=== PATIENT | female | born 2000 | race Caucasian/White ===

== ENCOUNTER 2018-04-09 18:49 | Emergency (ER) | payer SELFPAY ==
[2018-04-09] MEDS ORDERED: ONDANSETRON 4 MG TAB.RAPDIS PO ONE (20:01)
[2018-04-09] MEDS ORDERED: ACETAMINOPHEN 325 MG TABLET PO ONE (20:02)
--- NOTE | 2018-04-09 20:05 | ER Document Report ---
ED Medical Screen (RME) - General Chief Complaint: Flank Pain Stated Complaint: SIDE PAIN Time Seen by Provider: 04/09/18 19:58 Notes: RAPID MEDICAL EVALUATION DISCLOSURE I have seen this patient as part of a Rapid Medical Evaluation and, if ap plicable, placed any initially appropriate orders. The patient will be seen and fully evaluated, including a full history and physical exam, by a provider (in Main ED or Fast Track) when a room becomes available. 17-year-old female here with complaints of dysuria, right-sided back pain, nausea ongoing for the past 1-2 days. The back pain radiates around the flank and to the front. She has not had any hematuria frequency fevers chills vomiting diarrhea. She has not taken anything for the symptoms. She does have a strong family history of kidney stones. She has never had UTI or kidney infections. EXAM CTAB RRR No abdominal TTP, no peritoneal signs No CVA TTP TRAVEL OUTSIDE OF THE [place] IN LAST 30 DAYS: No - Related Data Allergies/Adverse Reactions: No Known Allergies Allergy (Unverified 04/09/18 18:56) Past Medical History Past Surgical History: Reports: Hx Orthopedic Surgery - bilateral knee/ligmament sx Physical Exam - Vital signs Vitals: Temp Pulse Resp BP Pulse Ox 98.6 F 84 14 135/86 H 99 04/09/18 19:02 04/09/18 19:02 04/09/18 19:02 04/09/18 19:02 04/09/18 19:02 Course - Vital Signs Vital signs: Temp Pulse Resp BP Pulse Ox 98.6 F 84 14 135/86 H 99 04/09/18 19:02 04/09/18 19:02 04/09/18 19:02 04/09/18 19:02 04/09/18 19:02
[2018-04-09 20:39] LABS: ABSOLUTE BASOPHILS # (AUTO) 0.1 10^3/uL (0.0-0.2); ABSOLUTE EOSINOPHILS # (AUTO) 0.3 10^3/uL (0.0-0.6); ABSOLUTE LYMPHOCYTES (AUTO) 2.4 10^3/uL (0.5-4.7); ABSOLUTE MONOCYTES (AUTO) 0.5 10^3/uL (0.1-1.4); ABSOLUTE NEUT (AUTO) 7.2 10^3/uL (1.7-8.2); BASOPHILS % (AUTO) 0.5 % (0-2); EOSINOPHILS % (AUTO) 2.5 % (0-6); HEMATOCRIT 42.7 % (36.0-47.0); HEMOGLOBIN 14.5 g/dL (12.0-15.5); LYMPHOCYTES % (AUTO) 22.9 % (13-45); MEAN CORPUSCULAR HEMOGLOBIN 30.3 pg (27.0-33.4); MEAN CORPUSCULAR VOLUME 89 fl (80-97); MONOCYTES % (AUTO) 4.9 % (3-13); PLATELET COUNT 351 10^3/uL (150-450); RED BLOOD COUNT 4.79 10^6/uL (3.72-5.28); RED CELL DISTRIBUTION WIDTH 13.2 % (11.5-14.0); SEGMENTED NEUTROPHILS % (AUTO) 69.2 % (42-78); TOTAL CELLS COUNTED % (AUTO) 100 %; WHITE BLOOD COUNT 10.4 10^3/uL (4.0-10.5)
[2018-04-09 20:46] LABS: APPEARANCE,URINE CLEAR; BILIRUBIN,URINE NEGATIVE (NEGATIVE); COLOR,URINE STRAW; GLUCOSE, URINE NEGATIVE (NEGATIVE); KETONES,URINE NEGATIVE (NEGATIVE); LEUKOCYTE ESTERASE,URINE NEGATIVE (NEGATIVE); NITRITE,URINE NEGATIVE (NEGATIVE); PROTEIN,URINE NEGATIVE (NEGATIVE); URINE SPECIFIC GRAVITY 1.006; UROBILINOGEN,URINE NEGATIVE mg/dL (<2.0)
[2018-04-09 20:54] LABS: ALANINE AMINOTRANSFERASE < 6 U/L (5-35); ALBUMIN 4.7 g/dL (3.7-5.6); ALKALINE PHOSPHATASE 77 U/L (50-135); ANION GAP 9 (5-19); ASPARTATE AMINO TRANSFERASE 14 U/L (5-30); BILIRUBIN,DIRECT 0.2 mg/dL (0.0-0.4); BILIRUBIN,TOTAL 0.2 mg/dL (0.2-1.3); BLOOD UREA NITROGEN 7 mg/dL (7-20); CALCIUM 9.7 mg/dL (8.4-10.2); CARBON DIOXIDE 26 mmol/L (22-30); CHLORIDE 106 mmol/L (98-107); GLUCOSE 90 mg/dL (75-110); LIPASE 69.8 U/L (23-300); POTASSIUM 3.9 mmol/L (3.6-5.0); SODIUM 141.1 mmol/L (137-145); TOTAL PROTEIN 7.6 g/dL (6.3-8.2)
--- NOTE | 2018-04-09 22:06 | RADIOLOGY REPORT (SQ) ---
EXAM DESCRIPTION: CT ABDOMEN WITHOUT IV CONTRAST COMPLETED DATE/TME: 04/09/2018 20:01 CLINICAL HISTORY: 17 years, Female, R low back pain rad to front COMPARISON: None. TECHNIQUE: 364 Images stored on PACS. All CT scanners at this facility use dose modulation, iterative reconstruction, and/or weight based dosing when appropriate to reduce radiation dose to as low as reasonably achievable (ALARA). [facility]: Dose Right [facility]: CareDose [facility]: Dose Right [facility]: Teradose 4D [facility]: [employer] LIMITATIONS: None. FINDINGS: Limited evaluation of the lung bases is unremarkable. Osseous structures are grossly intact. The visualized liver, spleen, adrenal glands, pancreas, kidneys are unremarkable. Negative for urinary tract calculus or hydronephrosis. The gallbladder is contracted. No gross evidence for bowel obstruction. Abundant stool in the colon. Normal appendix. Urinary bladder not distended, limiting its evaluation. No free air or free fluid. IMPRESSION: Negative for urinary tract calculus or hydronephrosis. Abundant stool in the colon. TECHNICAL DOCUMENTATION: Quality ID # 436: Final reports with documentation of one or more dose reduction techniques (e.g., Automated exposure control, adjustment of the mA and/or kV according to patient size, use of iterative reconstruction technique) copyright 2010 [employer]- All Rights Reserved
[2018-04-09] MEDS ORDERED: KETOROLAC TROMETHAMINE INJ/PF 30 MG/1 ML SDV IV ONE (22:41)
--- NOTE | 2018-04-09 22:43 | ER Document Report ---
ED GI/ - General Chief Complaint: Flank Pain Stated Complaint: SIDE PAIN Time Seen by Provider: 04/09/18 19:58 Notes: Patient is a 17-year-old female that comes to the emergency department for chief complaint of right lower abdominal/pelvic pain with radiation around to the right lower back. Symptoms started yesterday, are intermittent, she reports intermittent nausea. She denies vomiting. She denies fever or chills. She denies vaginal bleeding or discharge. She states she is sexually active but she has never had sexual intercourse without protection. She denies any daily medications or medical history other than orthopedic surgery. Family history of both kidney stones and ovarian cysts. TRAVEL OUTSIDE OF THE [place] IN LAST 30 DAYS: No - Related Data Allergies/Adverse Reactions: No Known Allergies Allergy (Unverified 04/09/18 18:56) Past Medical History - General Information source: Patient, Parent - Social History Smoking Status: Current Every Day Smoker Chew tobacco use (# tins/day): No Frequency of alcohol use: None Drug Abuse: None Lives with: Family Family History: Reviewed & Not Pertinent Patient has suicidal ideation: No Patient has homicidal ideation: No - Medical History Medical History: Negative Renal/ Medical History: Denies: Hx Peritoneal Dialysis Past Surgical History: Reports: Hx Orthopedic Surgery - bilateral knee/ligmament sx - Immunizations Immunizations up to date: Yes Hx Diphtheria, Pertussis, Tetanus Vaccination: Yes Review of Systems - Review of Systems Constitutional: No symptoms reported EENT: No symptoms reported Cardiovascular: No symptoms reported Respiratory: No symptoms reported Gastrointestinal: See HPI Genitourinary: See HPI Female Genitourinary: See HPI Musculoskeletal: No symptoms reported Skin: No symptoms reported Hematologic/Lymphatic: No symptoms reported Neurological/Psychological: No symptoms reported Physical Exam - Vital signs Vitals: Temp Pulse Resp BP Pulse Ox 98.6 F 84 14 135/86 H 99 04/09/18 19:02 04/09/18 19:02 04/09/18 19:02 04/09/18 19:02 04/09/18 19:02 - Notes Notes: GENERAL: Alert, interacts well. No acute distress. HEAD: Normocephalic, atraumatic. EYES: Pupils equal, round, and reactive to light. Extraocular movements intact. ENT: Oral mucosa moist, tongue midline. Oropharynx unremarkable. Airway patent. Nares patent, no nasal septal hematoma, TM's intact. NECK: Full range of motion. Supple. Trachea midline. LUNGS: Clear to auscultation bilaterally, no wheezes, rales, or rhonchi. No resp iratory distress. HEART: Regular rate and rhythm. No murmur ABDOMEN: Tender very specifically in the right pelvic area. Nontender benign abdomen otherwise. Slightly decreased bowel sounds throughout. GENITOURINARY: Deferred EXTREMITIES: Moves all 4 extremities spontaneously. No edema, normal radial and dorsalis pedis pulses bilaterally. No cyanosis. BACK: no cervical, thoracic, lumbar midline tenderness. No saddle anesthesia, normal distal neurovascular exam. NEUROLOGICAL: Alert and oriented x3. Normal speech. [cranial nerves II through XII grossly intact]. PSYCH: Normal affect, normal mood. SKIN: Warm, dry, normal turgor. No rashes or lesions noted. Course - Re-evaluation Re-evalutation: Patient alert, well-appearing, smiling, talkative. She has a soft nontender abdomen except for the right pelvic area. Suggestive of ovarian cyst with radiation to the lower back. No CVA tenderness. No vomiting. No fever. Unre markable vital signs. CBC, chemistry, urinalysis unremarkable. CT was performed in triage, this shows constipation but no acute findings otherwise. Because of patient's point tenderness over the pelvis I recommend a pelvic examination and ultrasound, pelvic exam was declined but ultrasound was agreed upon. Ultrasound showing right-sided ovarian cyst without evidence of torsion or concerning acute abnormality. Remaining evaluation is unremarkable. I discussed this with patient in detail, discussed with mom. Patient will be placed on medication for pain as needed (ketorolac), stool softener, discussed follow-up and return precautions. They state understanding and agreement. - Vital Signs Vital signs: Temp Pulse Resp BP Pulse Ox 98.2 F 71 14 126/66 H 99 04/10/18 00:25 04/10/18 00:25 04/09/18 19:02 04/10/18 00:25 04/10/18 00:25 - Laboratory Result Diagrams: 04/09/18 20:25 04/09/18 20:25 Discharge - Discharge Clinical Impression: Flank pain, Lower abdominal pain Condition: Stable Disposition: HOME, SELF-CARE Additional Instructions: Your workup shows an ovarian cyst on the right side. This is most likely the cause of your pain. This should resolve with time. I recommend routine [facility] follow-up for additional evaluation especially if symptoms continue. Workup also shows a lot of stool in the colon. Take stool softener as prescribed for the next several days, afterwards stop this stool softener and increase fiber an d hydration. Follow-up with primary care. Return if you worsen including severe pain, vomiting, fever, or any other concerning or worsening symptoms. Prescriptions: Ketorolac Tromethamine [Toradol 10 mg Tablet] 10 mg PO Q8HP PRN #24 tablet PRN Reason: Docusate Sodium [Colace 100 mg Capsule] 100 mg PO ASDIR PRN #30 capsule PRN Reason: Forms: Return to Work
--- NOTE | 2018-04-09 23:44 | RADIOLOGY REPORT (SQ) ---
EXAM DESCRIPTION: US PELVIS COMPLETED DATE/TME: 04/09/2018 22:41 CLINICAL HISTORY: 17 years, Female, right pelvic pain, nausea COMPARISON: None. TECHNIQUE: Transverse and longitudinal transabdominal sonographic images of the pelvis. Per history the patient refused transvaginal imaging. LIMITATIONS: None. FINDINGS: The uterus measures 7.3 x 5.5 x 3.5 cm. Endometrium measures 7 mm in thickness. The myometrium is homogenous. The left ovary is not well seen likely due to its position in the pelvis and overlying bowel gas. The right ovary measures 3.6 x 3.1 x 3.0 cm. Doppler and spectral analysis with color-flow shows arterial and venous flow to the right ovary. No solid adnexal mass. 3.0 x 2.9 x 2.3 cm right ovarian cyst, likely a dominant follicle. No free fluid IMPRESSION: Nonvisualization of the left ovary likely due to its position in the pelvis and overlying bowel gas. Probable dominant follicle of the right ovary. Remainder unremarkable copyright 2010 [employer]- All Rights Reserved
[2018-04-10 00:27] VITALS: BP 126/66
== END 2018-04-10 00:47 | disposition home or self-care (01) ==
LOC: ER 18:49
DX: R10.30 Lower abdominal pain, unspecified (principal); R11.0 Nausea; F17.200 Nicotine dependence, unspecified, uncomplicated
CPT/HCPCS: 99284; 96374; 36415; 87086; 83690; 85025; 81025; 80053; 81001; 76856; 93976; 76380; S0119; J1885

== ENCOUNTER 2019-01-27 13:16 | Emergency (ER) | payer MEDICAID ==
[2019-01-27 13:27] VITALS: BP 131/68
--- NOTE | 2019-01-27 13:37 | ER Document Report ---
ED Medical Screen (RME) - General Chief Complaint: Shoulder Pain Stated Complaint: CHEST PAIN Time Seen by Provider: 01/27/19 13:31 Mode of Arrival: Ambulatory Information source: Patient, Parent Notes: Patient presents complaining of shoulder pain and chest pressure for the past 4 days. Patient reports feeling anxious as well. Patient had a cough for the past week. Patient denies any injury. Patient does have a history of anxiety and is currently on medications. Patient denies any suicidal homicidal ideation. I have greeted and performed a rapid initial assessment of this patient. A comprehensive ED assessment and evaluation of the patient, analysis of test results and completion of the medical decision making process will be conducted by additional ED providers. TRAVEL OUTSIDE OF THE [place] IN LAST 30 DAYS: No - Related Data Allergies/Adverse Reactions: No Known Allergies Allergy (Verified 01/27/19 13:32) Past Medical History Renal/ Medical History: Denies: Hx Peritoneal Dialysis Past Surgical History: Reports: Hx Orthopedic Surgery - bilateral knee/ligmament sx - Immunizations Immunizations up to date: Yes Hx Diphtheria, Pertussis, Tetanus Vaccination: Yes Physical Exam - Vital signs Vitals: Temp Pulse Resp BP Pulse Ox 97.9 F 97 16 131/68 H 100 01/27/19 13:20 01/27/19 13:20 01/27/19 13:20 01/27/19 13:20 01/27/19 13:20 - General General appearance: Alert, Anxious Notes: Patient fidgeting in triage, patient unable to give history without assistance per mother due to anxiety about speaking. Breath sounds clear bilaterally. Course - Vital Signs Vital signs: Temp Pulse Resp BP Pulse Ox 97.9 F 97 16 131/68 H 100 01/27/19 13:20 01/27/19 13:20 01/27/19 13:20 01/27/19 13:20 01/27/19 13:20
--- NOTE | 2019-01-27 13:53 | RADIOLOGY REPORT (SQ) ---
EXAM DESCRIPTION: CHEST 2 VIEWS COMPLETED DATE/TIME: 01/27/2019 1:44 pm REASON FOR STUDY: cp COMPARISON: None. EXAM PARAMETERS: NUMBER OF VIEWS: two views TECHNIQUE: Digital Frontal and Lateral radiographic views of the chest acquired. RADIATION DOSE: NA LIMITATIONS: none FINDINGS: LUNGS AND PLEURA: No opacities, masses or pneumothorax. No pleural effusion. MEDIASTINUM AND HILAR STRUCTURES: No masses or contour abnormalities. HEART AND VASCULAR STRUCTURES: Heart normal size. No evidence for failure. BONES: No acute findings. HARDWARE: None in the chest. OTHER: No other significant finding. IMPRESSION: NO ACUTE RADIOGRAPHIC FINDING IN THE CHEST. TECHNICAL DOCUMENTATION: JOB ID: [id number] [employer] [facility]- All Rights Reserved Reading location - IP/workstation name: [email or web address]
--- NOTE | 2019-01-27 14:42 | EKG REPORT ---
SEVERITY:- NORMAL ECG - SINUS RHYTHM : Confirmed by: Genet Sutherland MD 27-Jan-2019 14:41:17
--- NOTE | 2019-01-27 14:52 | ER Document Report ---
ED General - General Chief Complaint: Chest Pain Stated Complaint: CHEST PAIN Time Seen by Provider: 01/27/19 13:31 Primary Care Provider: HECTOR OVERTON PA-C [Primary Care Provider] - Follow up as needed Mode of Arrival: Ambulatory TRAVEL OUTSIDE OF THE [place] IN LAST 30 DAYS: No - HPI Notes: Patient is a 18-year-old female who presents emergency department for evaluation of chest pain, shoulder pain, neck pain, jaw pain. It has been ongoing for the last 4 days. She has a history of anxiety. She describes as a tight and tense feeling. It is constant, seems to be worse when she lays down to go to sleep. She denies any associated visual changes. No nausea or vomiting. No shortness of breath, diaphoresis, near syncope. She is currently being treated by her primary care provider for anxiety. She is awaiting referral onto therapy. - Related Data Allergies/Adverse Reactions: No Known Allergies Allergy (Verified 01/27/19 13:32) Home Medications: Zoloft, Klonopin Past Medical History - General Information source: Patient, Parent - Social History Smoking Status: Current Every Day Smoker Family History: Reviewed & Not Pertinent Patient has suicidal ideation: No Patient has homicidal ideation: No Renal/ Medical History: Denies: Hx Peritoneal Dialysis Psychiatric Medical History: Reports: Hx Anxiety Past Surgical History: Reports: Hx Orthopedic Surgery - bilateral knee/ligmament sx - Immunizations Immunizations up to date: Yes Hx Diphtheria, Pertussis, Tetanus Vaccination: Yes Review of Systems - Review of Systems Constitutional: No symptoms reported EENT: No symptoms reported Cardiovascular: See HPI Respiratory: No symptoms reported Gastrointestinal: No symptoms reported Genitourinary: No symptoms reported Musculoskeletal: See HPI Skin: No symptoms reported Neurological/Psychological: No symptoms reported Physical Exam - Vital signs Vitals: Temp Pulse Resp BP Pulse Ox 97.9 F 97 16 131/68 H 100 01/27/19 13:20 01/27/19 13:20 01/27/19 13:20 01/27/19 13:20 01/27/19 13:20 - Notes Notes: Vital signs reviewed, please refer to chart. Head is normocephalic, atraumatic. Pupils equal round, reactive to light. Heart is regular rate and rhythm. Lungs are clear to auscultation bilaterally. Chest wall is tender to palpation. Abdomen is soft, nontender, normoactive bowel sounds throughout. Extremities without cyanosis, clubbing. Posterior calves are nontender. Peripheral pulses are equal. Skin is warm and dry. Patient is awake, alert, neurological exam is nonfocal. Muscular skeletal exam reveals significant tension bilateral masseters, and of the cervical spine, bilateral trapezius, and tracking into the anterior chest wall. Course - Re-evaluation Re-evalutation: 01/27/19 14:53 Patient presents emergency department for evaluation. She had chest x-ray and EKG performed. On physical exam her findings are most consistent with muscle tension, likely contributed to by her anxiety. Her chest x-ray and EKG were unremarkable. We will send the patient home with anti-inflammatories and muscle relaxers. Both her and her mother warned about drowsiness associated with the Flexeril. She voiced understanding to this. She is encouraged to follow-up closely with primary care, continue to seek out treatment for her anxiety. She is to return to the ED with worsening or new concerning symptoms of any sort. - Vital Signs Vital signs: Temp Pulse Resp BP Pulse Ox 97.9 F 97 16 131/68 H 100 01/27/19 13:20 01/27/19 13:20 01/27/19 13:20 01/27/19 13:20 01/27/19 13:20 - Diagnostic Test Radiology reviewed: Image reviewed, Reports reviewed Radiology results interpreted by me: 01/27/19 14:54 Chest X-Ray 01/27/19 13:35 IMPRESSION: NO ACUTE RADIOGRAPHIC FINDING IN THE CHEST. - EKG Interpretation by Me Additional EKG results interpreted by me: 01/27/19 14:54 Sinus mechanism with a rate of 83 bpm. Normal axis and intervals, no acute ST changes concerning for ischemia or infarction Discharge - Discharge Clinical Impression: Chest wall pain, Jaw pain Shoulder pain Qualifiers: Chronicity: acute Laterality: bilateral Qualified Code(s): M25.511 - Pain in right shoulder; M25.512 - Pain in left shoulder Condition: Stable Disposition: HOME, SELF-CARE Instructions: Chest Wall Pain ([facility]), Anxiety ([facility]), Tension Headache ([facility]) Additional Instructions: Take medications as prescribed, preferably with food. Please watch for drowsiness with the Flexeril. Follow-up with your primary care provider next week, continue to seek out therapy/psychiatry. Return to the emergency department with worsening or new concerning symptoms of any sort. Referrals: HECTOR OVERTON PA-C [Primary Care Provider] - Follow up as needed
== END 2019-01-27 15:10 | disposition home or self-care (01) ==
LOC: ER 13:16
DX: R07.89 Other chest pain (principal); R68.84 Jaw pain; M25.511 Pain in right shoulder; M25.512 Pain in left shoulder; F17.200 Nicotine dependence, unspecified, uncomplicated
CPT/HCPCS: 71046; 93005; 93010; 99285

== ENCOUNTER 2019-02-10 14:18 | Observation (INO) | payer MEDICAID ==
[2019-02-10] MEDS ORDERED: NORMAL SALINE 1000 ML 1,000 ML IV ONE ×2 (14:34→19:18)
--- NOTE | 2019-02-10 14:35 | ER Document Report ---
ED Medical Screen (RME) - General Chief Complaint: Lower Abdominal Pain Stated Complaint: ABDOMINAL PAIN Time Seen by Provider: 02/10/19 14:33 Primary Care Provider: HECTOR OVERTON PA-C [Primary Care Provider] - Follow up as needed Mode of Arrival: Ambulatory Information source: Patient Notes: Patient presents complaining of right lower quadrant pain that started yes terday. Patient denies any nausea or vomiting but does report diarrhea. No urinary symptoms. Patient is presently on her menstrual cycle. I have greeted and performed a rapid initial assessment of this patient. A comprehensive ED assessment and evaluation of the patient, analysis of test results and completion of the medical decision making process will be conducted by additional ED providers. TRAVEL OUTSIDE OF THE [place] IN LAST 30 DAYS: No - Related Data Allergies/Adverse Reactions: No Known Allergies Allergy (Verified 01/27/19 13:32) Past Medical History Renal/ Medical History: Denies: Hx Peritoneal Dialysis Psychiatric Medical History: Reports: Hx Anxiety Past Surgical History: Reports: Hx Orthopedic Surgery - bilateral knee/ligmament sx - Immunizations Immunizations up to date: Yes Hx Diphtheria, Pertussis, Tetanus Vaccination: Yes Physical Exam - Vital signs Vitals: Temp Pulse Resp BP Pulse Ox 97.5 F 106 H 14 137/74 H 99 02/10/19 14:22 02/10/19 14:22 02/10/19 14:22 02/10/19 14:22 02/10/19 14:22 - General General appearance: Appears well, Alert Notes: Right lower pelvic tenderness Course - Vital Signs Vital signs: Temp Pulse Resp BP Pulse Ox 97.5 F 106 H 14 137/74 H 99 02/10/19 14:22 02/10/19 14:22 02/10/19 14:22 02/10/19 14:22 02/10/19 14:22 Doctor's Discharge - Discharge Referrals: HECTOR OVERTON PA-C [Primary Care Provider] - Follow up as needed
--- NOTE | 2019-02-10 15:42 | RADIOLOGY REPORT (SQ) ---
EXAM DESCRIPTION: U/S NON OB PEL W/DOPPLER COMPLETED DATE/TIME: 02/10/2019 3:27 pm REASON FOR STUDY: RLQ pain COMPARISON: None. TECHNIQUE: Dynamic and static grayscale images acquired of the pelvis via transabdominal approach an d recorded on PACS. Additional selected color Doppler and spectral images recorded. LIMITATIONS: None. FINDINGS: UTERUS: Contour normal. No mass. ENDOMETRIAL STRIPE: No focal or generalized thickening. No masses. CERVIX: No nabothian cysts. RIGHT OVARY AND DOPPLER: Normal size. No worrisome masses. Normal arterial vascular flow without evid ence for torsion. Fluid around the right ovary. LEFT OVARY AND DOPPLER: Normal size. No worrisome masses. Normal arterial vascular flow without evide nce for torsion. FREE FLUID: Along the right ovary OTHER: No other significant finding. MEASUREMENTS: UTERUS: 7.2 cm ENDOMETRIAL STRIPE: 13.9 mm RIGHT OVARY: 4 cm LEFT OVARY: 3.3 cm IMPRESSION: Small amount of fluid around the right ovary. Otherwise normal. TECHNICAL DOCUMENTATION: JOB ID: [id number]- All Rights Reserved Rev-08/18 Reading location - IP/workstation name: [email or web address]
[2019-02-10 15:56] LABS: APPEARANCE,URINE CLEAR; BILIRUBIN,URINE NEGATIVE (NEGATIVE); COLOR,URINE STRAW; GLUCOSE, URINE NEGATIVE (NEGATIVE); KETONES,URINE NEGATIVE (NEGATIVE); PROTEIN,URINE NEGATIVE (NEGATIVE); URINE SPECIFIC GRAVITY 1.003; UROBILINOGEN,URINE NEGATIVE mg/dL (<2.0)
[2019-02-10 16:59] LABS: ABSOLUTE EOSINOPHILS # (AUTO) 0.1 10^3/uL (0.0-0.6); ABSOLUTE LYMPHOCYTES (AUTO) 1.4 10^3/uL (0.5-4.7); ABSOLUTE MONOCYTES (AUTO) 0.5 10^3/uL (0.1-1.4); BASOPHILS % (AUTO) 0.2 % (0-2); EOSINOPHILS % (AUTO) 0.7 % (0-6); HEMATOCRIT 43.2 % (36.0-47.0); HEMOGLOBIN 14.7 g/dL (12.0-15.5); MEAN CORPUSCULAR HEMOGLOBIN 30.8 pg (27.0-33.4); MEAN CORPUSCULAR VOLUME 91 fl (80-97); MONOCYTES % (AUTO) 4.3 % (3-13); PLATELET COUNT 318 10^3/uL (150-450); RED BLOOD COUNT 4.77 10^6/uL (3.72-5.28); RED CELL DISTRIBUTION WIDTH 12.4 % (11.5-14.0); SEGMENTED NEUTROPHILS % (AUTO) 81.8 % (42-78); TOTAL CELLS COUNTED % (AUTO) 100 %
[2019-02-10 17:16] LABS: ANION GAP 13 (5-19); BLOOD UREA NITROGEN 9 mg/dL (7-20); CALCIUM 9.8 mg/dL (8.4-10.2); CARBON DIOXIDE 25 mmol/L (22-30); CHLORIDE 104 mmol/L (98-107); GLUCOSE 88 mg/dL (75-110); POTASSIUM 4.4 mmol/L (3.6-5.0)
[2019-02-10 18:30] LABS: CHLAM PCR NOT DETECTED (NOT DETECT)
[2019-02-10] MEDS ORDERED: CLINDAMYCIN 600 MG/D5W RTU 600 MG/50 ML RTUPB IV ONE (19:17)
[2019-02-10] MEDS ORDERED: CEFTRIAXONE 1 GM/D5W RTU 1 GM/50 ML RTUPB IV ONE (19:17)
--- NOTE | 2019-02-10 19:18 | ER Document Report ---
ED GI/ - General Chief Complaint: Abdominal Pain Stated Complaint: ABDOMINAL PAIN Time Seen by Provider: 02/10/19 14:33 Primary Care Provider: HECTOR OVERTON PA-C [Primary Care Provider] - Follow up as needed Mode of Arrival: Ambulatory Information source: Patient Notes: Patient is an otherwise healthy 18-year-old female presenting to the emergency department with chief complaint of right lower quadrant abdominal pain that began yesterday. Patient denies any nausea, vomiting, diarrhea. Reports she thinks she had a fever earlier but she did not take her temperature. She does report that she is currently on her period. She does report history of ovarian cysts. TRAVEL OUTSIDE OF THE [place] IN LAST 30 DAYS: No - Related Data Allergies/Adverse Reactions: No Known Allergies Allergy (Verified 02/10/19 14:35) Home Medications: Zoloft, Clonazepam Past Medical History - General Information source: Patient - Social History Smoking Status: Current Every Day Smoker Chew tobacco use (# tins/day): No Frequency of alcohol use: None Drug Abuse: None Family History: Reviewed & Not Pertinent Patient has suicidal ideation: No Patient has homicidal ideation: No Renal/ Medical History: Reports: Hx Ovarian Cysts. Denies: Hx Peritoneal Dialysis Psychiatric Medical History: Reports: Hx Anxiety Past Surgical History: Reports: Hx Orthopedic Surgery - bilateral knee/ligmament sx - Immunizations Immunizations up to date: Yes Hx Diphtheria, Pertussis, Tetanus Vaccination: Yes Review of Systems - Review of Systems Constitutional: No symptoms reported EENT: No symptoms reported Cardiovascular: No symptoms reported Respiratory: No symptoms reported Gastrointestinal: Abdominal pain Genitourinary: No symptoms reported Female Genitourinary: No symptoms reported Musculoskeletal: No symptoms reported Skin: No symptoms reported Hematologic/Lymphatic: No symptoms reported Neurological/Psychological: No symptoms reported Physical Exam - Vital signs Vitals: Temp Pulse Resp BP Pulse Ox 97.5 F 106 H 14 137/74 H 99 02/10/19 14:22 02/10/19 14:22 02/10/19 14:22 02/10/19 14:22 02/10/19 14:22 - Notes Notes: PHYSICAL EXAMINATION: GENERAL: Well-appearing, well-nourished and in no acute distress. HEAD: Atraumatic, normocephalic. EYES: Pupils equal round and reactive to light, extraocular movements intact, conjunctiva are normal. ENT: Nares patent, oropharynx clear without exudates. Moist mucous membranes. NECK: Normal range of motion, supple without lymphadenopathy LUNGS: Breath sounds clear to auscultation bilaterally and equal. No wheezes rales or rhonchi. HEART: Regular rate and rhythm without murmurs ABDOMEN: Soft, nondistended abdomen. Mild tenderness to the right lower quadrant. No guarding, no rebound. No masses appreciated. Female : No CVA tenderness. Musculoskeletal: Normal range of motion, no pitting or edema. No cyanosis. NEUROLOGICAL: Cranial nerves grossly intact. Normal speech, normal gait. Normal sensory, motor exams PSYCH: Normal mood, normal affect. SKIN: Warm, Dry, normal turgor, no rashes or lesions noted. Course - Re-evaluation Re-evalutation: Laboratory 02/10/19 02/10/19 02/10/19 15:30 16:30 16:32 WBC 11.0 H RBC 4.77 Hgb 14.7 Hct 43.2 MCV 91 MCH 30.8 MCHC 34.0 RDW 12.4 Plt Count 318 Lymph % (Auto) 13.0 [place] % (Auto) 4.3 Eos % (Auto) 0.7 Baso % (Auto) 0.2 Absolute Neuts (auto) 9.0 H Absolute Lymphs (auto) 1.4 Absolute Monos (auto) 0.5 Absolute Eos (auto) 0.1 Absolute Basos (auto) 0.0 Seg Neutrophils % 81.8 H Sodium Potassium Chloride Carbon Dioxide Anion Gap BUN Creatinine Est GFR ( Amer) Est GFR (MDRD) Non-Af Glucose Calcium Serum HCG, Qual Urine Color STRAW Urine Appearance CLEAR Urine pH 7.0 Ur Specific [place] 1.003 Urine Protein NEGATIVE Urine Glucose (UA) NEGATIVE Urine Ketones NEGATIVE Urine Blood LARGE H Urine Nitrite (Reflex) NEGATIVE Urine Bilirubin NEGATIVE Urine Urobilinogen NEGATIVE Leukocyte Esterase Rfl NEGATIVE Urine RBC (Auto) 35 Urine Bacteria (Auto) TRACE Urine WBC (Reflex) 1 Squamous Epi Cells Auto 1 Urine Mucus (Auto) RARE Urine Ascorbic Acid NEGATIVE Chlamydia DNA (PCR) NOT DETECTED N.gonorrhoeae DNA (PCR) NOT DETECTED 02/10/19 02/10/19 16:32 16:32 WBC RBC Hgb Hct MCV MCH MCHC RDW Plt Count Lymph % (Auto) [place] % (Auto) Eos % (Auto) Baso % (Auto) Absolute Neuts (auto) Absolute Lymphs (auto) Absolute Monos (auto) Absolute Eos (auto) Absolute Basos (auto) Seg Neutrophils % Sodium 141.7 Potassium 4.4 Chloride 104 Carbon Dioxide 25 Anion Gap 13 BUN 9 Creatinine 0.53 Est GFR ( Amer) > 60 Est GFR (MDRD) Non-Af > 60 Glucose 88 Calcium 9.8 Serum HCG, Qual NEGATIVE Urine Color Urine Appearance Urine pH Ur Specific [place] Urine Protein Urine Glucose (UA) Urine Ketones Urine Blood Urine Nitrite (Reflex) Urine Bilirubin Urine Urobilinogen Leukocyte Esterase Rfl Urine RBC (Auto) Urine Bacteria (Auto) Urine WBC (Reflex) Squamous Epi Cells Auto Urine Mucus (Auto) Urine Ascorbic Acid Chlamydia DNA (PCR) N.gonorrhoeae DNA (PCR) Pelvis Ultrasound 02/10/19 14:33 IMPRESSION: Small amount of fluid around the right ovary. Otherwise normal. Abdomen/Pelvis CT 02/10/19 18:13 IMPRESSION: Findings consistent with acute appendicitis. Moderate amount of free fluid within the cul de sac and posterior to the ovaries ,prominent on the right. Called and consulted Dr. Medrano, general surgeon regarding acute dependence findings on CT. He will come and evaluate the patient. Patient advised again of n.p.o. status. - Vital Signs Vital signs: Temp Pulse Resp BP Pulse Ox 97.5 F 106 H 14 137/74 H 99 02/10/19 14:22 02/10/19 14:22 02/10/19 14:22 02/10/19 14:22 02/10/19 14:22 - Laboratory Result Diagrams: 02/10/19 16:32 02/10/19 16:32 Laboratory results interpreted by me: 02/10/19 02/10/19 15:30 16:32 WBC 11.0 H Absolute Neuts (auto) 9.0 H Seg Neutrophils % 81.8 H Urine Blood LARGE H Discharge - Discharge Clinical Impression: Acute appendicitis Qualifiers: Acute appendicitis type: unspecified acute appendicitis type Qualified Code(s): K35.80 - Unspecified acute appendicitis Condition: Stable Disposition: ADMITTED INPATIENT Admitting Provider: Surgicalist Ramiro Medrano Unit Admitted: Surgical Floor Referrals: HECTOR OVERTON PA-C [Primary Care Provider] - Follow up as needed
--- NOTE | 2019-02-10 19:29 | RADIOLOGY REPORT (SQ) ---
EXAM DESCRIPTION: CT ABD/PELVIS WITH IV ONLY COMPLETED DATE/TIME: 02/10/2019 6:53 pm REASON FOR STUDY: RLQ pain COMPARISON: None. TECHNIQUE: CT scan of the abdomen and pelvis performed using helical scanning technique with dynamic intravenous contrast injection. No oral contrast. Images reviewed with lung, soft tissue, and bone windows. Reconstructed coronal and sagittal MPR images reviewed. Delayed images for evaluation of the urinary system also acquired. All images stored on PACS. All CT scanners at this facility use dose modulation, iterative reconstruction, and/or weight based d osing when appropriate to reduce radiation dose to as low as reasonably achievable (ALARA). [facility]: Dose Right [facility]: CareDose [facility]: Dose Right [facility]: Teradose 4D [facility]: TRIA Beauty CONTRAST TYPE AND DOSE: contrast/concentration: Isovue 350.00 mg/ml; Total Contrast Delivered: 72.0 ml; Total Saline Delivered: 66.0 ml RENAL FUNCTION: Not available. RADIATION DOSE: CT Rad equipment meets quality standard of care and radiation dose reduction techniq ues were employed. CTDIvol: 5.1 - 6.2 mGy. DLP: 592 mGy-cm.. LIMITATIONS: None. FINDINGS: LOWER CHEST: No abnormality. LIVER: No abnormality. SPLEEN: No abnormality. PANCREAS: No abnormality. GALLBLADDER: No abnormality. ADRENAL GLANDS: No abnormality. RIGHT KIDNEY AND URETER: No abnormality. LEFT KIDNEY AND URETER: No abnormality. AORTA AND VESSELS: No aneurysm. No dissection. Renal arteries, SMA, celiac without stenosis. RETROPERITONEUM: No retroperitoneal adenopathy, hemorrhage or masses. BOWEL AND PERITONEAL CAVITY: There is a patulous distal ileum at the ileal cecal region which could r epresent a localized ileus secondary to the adjacent acute appendicitis. APPENDIX: There is evidence of a thick-walled distended appendix containing fluid with very appendice al inflammation. The appendix measures a cm in diameter. The findings are compatible with acute meera endicitis. Minimal periappendiceal inflammation noted (image number 23/[id number] series 601 coronal sca ns PELVIS: Moderate amount of free fluid in cul de sac and adjacent to posterior ovaries greatest on th e right. URINARY BLADDER: No abnormality. UTERUS: No abnormality. ADNEXAL REGIONS: No abnormalit y. ABDOMINAL WALL: No masses. No hernias. BONES: No abnormality. IMPRESSION: Findings consistent with acute appendicitis. Moderate amount of free fluid within the c ul de sac and posterior to the ovaries ,prominent on the right. COMMENT: The report was called to the patient's healthcare provider Liana Ross. TECHNICAL DOCUMENTATION: JOB ID: [id number] SC-69 Quality ID # [id number]: Final reports with documentation of one or more dose reduction techniques (e.g., Au tomated exposure control, adjustment of the mA and/or kV according to patient size, use of iterative reconstruction technique) 2010 [employer]- All Rights Reserved Reading location - IP/workstation name: [email or web address]
--- NOTE | 2019-02-10 19:55 | PDOC H&P ---
History of Present Illness Admission Date/PCP: HECTOR OVERTON PA-C Patient complains of: Abdominal pain right lower quadrant History of Present Illness: ANNY FRAGA is a 18 year old female healthy, with a history of right lower quadrant pain for the past 12 hours of intense nausea. A CT scan of the abdomen pelvis was done revealing an acute appendicitis with a small amount of fluid in the pelvis. No evidence of perforation. Past Surgical History Past Surgical History: Reports: Orthopedic Surgery - bilateral knee/ligmament sx Social History Smoking Status: Current Every Day Smoker Electronic Cigarette use?: No Family History Family History: Reviewed & Not Pertinent Parental Family History Reviewed: No Children Family History Reviewed: No Sibling(s) Family History Reviewed.: No Medication/Allergy Home Medications: Docusate Sodium [Colace 100 mg Capsule] 100 mg PO ASDIR PRN #30 capsule 04/10/18 Ketorolac Tromethamine [Toradol 10 mg Tablet] 10 mg PO Q8HP PRN #24 tablet 04/10/18 Cyclobenzaprine HCl [Flexeril 10 mg Tablet] 10 mg PO TIDP PRN #15 tab 01/27/19 Naproxen [Naprosyn] 500 mg PO BID #20 tablet 01/27/19 Allergies/Adverse Reactions: No Known Allergies Allergy (Verified 02/10/19 14:35) Physical Exam Vital Signs: Temp Pulse Resp BP Pulse Ox 97.5 F 106 H 14 137/74 H 99 02/10/19 14:22 02/10/19 14:22 02/10/19 14:22 02/10/19 14:22 02/10/19 14:22 Intake & Output 02/09/19 02/10/19 02/11/19 06:59 06:59 06:59 Intake Total 1000 Balance 1000 Weight 63.4 kg General appearance: PRESENT: no acute distress Head exam: PRESENT: atraumatic Eye exam: PRESENT: EOMI Mouth exam: PRESENT: neck supple Neck exam: PRESENT: full ROM Respiratory exam: PRESENT: chest wall tenderness Cardiovascular exam: PRESENT: RRR GI/Abdominal exam: PRESENT: soft, tenderness - Lower quadrant with grimacing Rectal exam: PRESENT: deferred Extremities exam: PRESENT: full ROM Musculoskeletal exam: PRESENT: full ROM Neurological exam: PRESENT: oriented to person Psychiatric exam: PRESENT: appropriate affect Skin exam: PRESENT: warm Results Laboratory Results: 02/10/19 16:32 11/10/19 16:32 02/10/19 02/10/19 02/10/19 15:30 16:32 16:32 WBC 11.0 H RBC 4.77 Hgb 14.7 Hct 43.2 MCV 91 MCH 30.8 MCHC 34.0 RDW 12.4 Plt Count 318 Seg Neutrophils % 81.8 H Sodium 141.7 Potassium 4.4 Chloride 104 Carbon Dioxide 25 Anion Gap 13 BUN 9 Creatinine 0.53 Est GFR ( Amer) > 60 Glucose 88 Calcium 9.8 Serum HCG, Qual Urine Color STRAW Urine Appearance CLEAR Urine pH 7.0 Ur Specific [place] 1.003 Urine Protein NEGATIVE Urine Glucose (UA) NEGATIVE Urine Ketones NEGATIVE Urine Blood LARGE H Urine RBC (Auto) 35 02/10/19 16:32 WBC RBC Hgb Hct MCV MCH MCHC RDW Plt Count Seg Neutrophils % Sodium Potassium Chloride Carbon Dioxide Anion Gap BUN Creatinine Est GFR ( Amer) Glucose Calcium Serum HCG, Qual NEGATIVE Urine Color Urine Appearance Urine pH Ur Specific [place] Urine Protein Urine Glucose (UA) Urine Ketones Urine Blood Urine RBC (Auto) Impressions: Pelvis Ultrasound 02/10/19 14:33 IMPRESSION: Small amount of fluid around the right ovary. Otherwise normal. Abdomen/Pelvis CT 02/10/19 18:13 IMPRESSION: Findings consistent with acute appendicitis. Moderate amount of free fluid within the cul de sac and posterior to the ovaries ,prominent on the right. Assessment & Plan - Diagnosis (1) Acute appendicitis Qualifiers: Acute appendicitis type: unspecified acute appendicitis type Qualified Code(s): K35.80 - Unspecified acute appendicitis - Plan Summary Plan Summary: Assessment: Right upper quadrant pain CT scan abdomen pelvis positive for acute appendicitis, without perforation, present small amount of fluid in the right pelvis Slight leukocytosis 11,000 History of depression Plan: Laparoscopic appendectomy possible open tonight Procedure, risks benefits complications, explained to the patient, her questions answered, she decided to proceed Patient to be admitted following surgery
[2019-02-10] MEDS ORDERED: MORPHINE SULFATE 10 MG/ML INJ IV ONE (20:34)
[2019-02-11] MEDS ORDERED: ONDANSETRON HCL INJ/PF 4 MG/2 ML SDV IV PRN ×2 (00:20→01:48)
[2019-02-11] MEDS ORDERED: MORPHINE SULFATE 10 MG/ML INJ IV PRN ×2 (00:21→01:48)
[2019-02-11] MEDS ORDERED: DEXTROSE 50%-WATER 25 GM/50 ML DISP.SYRIN IV PRN ×2 (01:48)
[2019-02-11] MEDS ORDERED: DEXTROSE 40% GEL 15 GM TUBE PO PRN ×2 (01:48)
[2019-02-11] MEDS ORDERED: GLUCAGON,HUMAN RECOMB 1 MG INJ SUBCUT PRN (01:48)
[2019-02-11] MEDS: ACETAMINOPHEN 1,000 MG/100 ML RTUPB IV SCH ×4 (02:56→20:18)
[2019-02-11] MEDS: CLINDAMYCIN 600 MG/D5W RTU 600 MG/50 ML RTUPB IV SCH ×3 (06:21→21:38)
[2019-02-11] MEDS: NORMAL SALINE 1000 ML 1,000 ML IV PRN ×2 (07:45→13:07)
[2019-02-11] MEDS ORDERED: KETOROLAC TROMETHAMINE 60 MG/2 ML SDV ONE (10:00)
[2019-02-11] MEDS ORDERED: GLYCOPYRROLATE 1 MG/5 ML VIAL ONE (10:00)
[2019-02-11] MEDS ORDERED: METOCLOPRAMIDE HCL INJ/PF 10 MG/2 ML SDV ONE (10:00)
[2019-02-11] MEDS ORDERED: NEOSTIGMINE METHYLSULFATE 10 MG/10 ML VIAL ONE (10:00)
[2019-02-11] MEDS ORDERED: LIDOCAINE 2% INJ-PF (20 MG/ML) 2 ML AMPUL ONE (10:00)
[2019-02-11] MEDS ORDERED: DEXAMETHASONE SOD PHOSPHATE INJ 4 MG/1 ML VIAL ONE (10:00)
[2019-02-11] MEDS ORDERED: SUCCINYLCHOLINE CHLORIDE INJ 200 MG/10 ML VIAL ONE (10:00)
[2019-02-11] MEDS ORDERED: ONDANSETRON HCL INJ/PF 4 MG/2 ML SDV ONE (10:00)
[2019-02-11] MEDS ORDERED: ROCURONIUM BROMIDE INJ 50 MG/5 ML VIAL IV ONE (10:00)
[2019-02-11] MEDS: FAMOTIDINE INJ/PF 20 MG/2 ML SDV IV SCH ×2 (10:13→22:29)
[2019-02-11] MEDS ORDERED: BUPIVACAINE HCL 0.5 % INJ/PF 30 ML SDV ONE (10:18)
[2019-02-11] MEDS ORDERED: FENTANYL CITRATE INJ/PF 100 MCG/2 ML AMPUL ONE (10:24)
[2019-02-11] MEDS ORDERED: MIDAZOLAM 2 MG/2 ML INJ ONE (10:24)
[2019-02-11] MEDS ORDERED: PROPOFOL INJ 200 MG/20 ML VIAL IV ONE (10:25)
[2019-02-11] MEDS ORDERED: BUPIVACAINE HCL 0.5 % INJ/PF 30 ML SDV INJ ONE (10:59)
[2019-02-11] MEDS ORDERED: FENTANYL CITRATE INJ/PF 100 MCG/2 ML AMPUL IV PRN ×3 (11:11)
[2019-02-11] MEDS ORDERED: DIPHENHYDRAMINE HCL 50 MG/ML VIAL IV PRN (11:11)
[2019-02-11] MEDS ORDERED: PROMETHAZINE HCL INJ 25 MG/1 ML VIAL IV PRN ×2 (11:11)
[2019-02-11] MEDS ORDERED: MEPERIDINE HCL/PF INJ 25 MG/1 ML DISP.SYRIN IV PRN (11:11)
[2019-02-11] MEDS ORDERED: HYDROMORPHONE HCL INJ/PF 2 MG/ML AMPULE IV PRN (11:12)
[2019-02-11] MEDS ORDERED: KETOROLAC TROMETHAMINE INJ/PF 30 MG/1 ML SDV IV SCH (12:00)
--- NOTE | 2019-02-11 12:02 | Operative Report ---
Operative Report DATE OF SURGERY: 02/11/19 PREOPERATIVE DIAGNOSIS: Acute appendicitis POSTOPERATIVE DIAGNOSIS: Same, nonperforated OPERATION: Laparoscopic appendectomy SURGEON: BRAYDEN HDZ ANESTHESIA: Local - 20 mL half percent Marcaine TISSUE REMOVED OR ALTERED: Appendix COMPLICATIONS: None ESTIMATED BLOOD LOSS: Strength 5 mL's INTRAOPERATIVE FINDINGS: Acutely inflamed appendix without evidence of perforation, minimal amount of fluid in the pelvis PROCEDURE: The procedure was done in the operating room. The patient was placed in a supine position, general anesthesia induced by endotracheal intubation, the abdomen was prepped and draped in usual fashion. An incision was made just above the umbilicus with a #15 blade, the skin was tented with towel clips and a 5 mm port with Optiview adapter and scope were inserted through the abdominal wall into the peritoneal cavity. After they CO2 pneumoperitoneum was obtained, under direct visualization a 5 mm report was inserted in the right lateral quadrant of the abdomen following skin incision. The scope was removed from the umbilical port and inserted into the right side port. The 5 mm umbilical port was removed and replaced with a 12 mm port, while the 5 mm port was inserted in left lower quadrant of the abdomen following skin incision. The patient was placed in steep Trendelenburg position with the right side elevated. The appendix was then identified by tracing the anterior tenia of the cecum, the appendix was then found, elevated, and stretched. The mesentery of the appendix was divided with the LigaSure. The appendix was found to be [non-perforated]. The appendix was stapled at the base with an Endo EDWARD stapler, extracted from the peritoneal cavity with an Endobag through the umbilical port. The pneumoperitoneum was then re-established, the stapled line was examined and found to be intact. The umbilical fascial defect was closed with a [id number]-[id number] 0 Vicryl suture, placed with a fascia closure device under direct visualization and left untied. All instruments were removed, the pneumoperitoneum was released, and all ports were removed. The umbilical fascial defect was closed with the previously placed [id number] 0 Vicryl suture, all skin incisions were closed with a 4-0 PDS running subcuticular suture, and covered with Dermabond. The patient tolerated the procedure well, was extubated, and transferred to the recovery room in satisfactory conditions.
[2019-02-11] MEDS ORDERED: HYDROMORPHONE HCL INJ/PF 2 MG/ML AMPULE ONE (12:03)
[2019-02-11] MEDS: MAG HYDROX/AL HYDROX/SIMETH SUSP 30 ML UDCUP PO PRN ×2 (13:50→21:38)
[2019-02-11] MEDS: KETOROLAC TROMETHAMINE INJ/PF 30 MG/1 ML SDV IV PRN (16:04)
[2019-02-11] MEDS ORDERED: CEFTRIAXONE 1 GM/D5W RTU 1 GM/50 ML RTUPB IV SCH (18:00)
[2019-02-11 20:38] LABS: APPEARANCE,URINE SLIGHTLY-CLOUDY; BILIRUBIN,URINE NEGATIVE (NEGATIVE); COLOR,URINE YELLOW; GLUCOSE, URINE NEGATIVE (NEGATIVE); KETONES,URINE 20 mg/dL (NEGATIVE); LEUKOCYTE ESTERASE,URINE NEGATIVE (NEGATIVE); NITRITE,URINE NEGATIVE (NEGATIVE); PROTEIN,URINE NEGATIVE (NEGATIVE); URINE SPECIFIC GRAVITY 1.006; UROBILINOGEN,URINE NEGATIVE mg/dL (<2.0)
[2019-02-11] MEDS ORDERED: DIPHENHYDRAMINE HCL 50 MG/ML VIAL IV ONE (22:44)
[2019-02-11] MEDS ORDERED: CYCLOBENZAPRINE HCL 10 MG TABLET PO PRN (22:45)
[2019-02-11] MEDS ORDERED: MORPHINE SULFATE 10 MG/ML INJ IV ONE (23:00)
[2019-02-12] MEDS: ACETAMINOPHEN 1,000 MG/100 ML RTUPB IV SCH ×2 (02:10→09:34)
[2019-02-12] MEDS: CLINDAMYCIN 600 MG/D5W RTU 600 MG/50 ML RTUPB IV SCH ×2 (05:22→14:25)
[2019-02-12] MEDS: KETOROLAC TROMETHAMINE INJ/PF 30 MG/1 ML SDV IV PRN ×2 (05:27→12:46)
[2019-02-12 05:48] LABS: ABSOLUTE EOSINOPHILS # (AUTO) 0.1 10^3/uL (0.0-0.6); ABSOLUTE LYMPHOCYTES (AUTO) 2.6 10^3/uL (0.5-4.7); ABSOLUTE MONOCYTES (AUTO) 0.7 10^3/uL (0.1-1.4); ABSOLUTE NEUT (AUTO) 5.9 10^3/uL (1.7-8.2); BASOPHILS % (AUTO) 0.1 % (0-2); EOSINOPHILS % (AUTO) 0.7 % (0-6); LYMPHOCYTES % (AUTO) 28.3 % (13-45); MEAN CORPUSCULAR HEMOGLOBIN 31.3 pg (27.0-33.4); MEAN CORPUSCULAR HGB CONC 34.8 g/dL (32.0-36.0); MEAN CORPUSCULAR VOLUME 90 fl (80-97); MONOCYTES % (AUTO) 7.5 % (3-13); PLATELET COUNT 248 10^3/uL (150-450); RED BLOOD COUNT 3.45 10^6/uL (3.72-5.28); SEGMENTED NEUTROPHILS % (AUTO) 63.4 % (42-78); TOTAL CELLS COUNTED % (AUTO) 100 %; WHITE BLOOD COUNT 9.3 10^3/uL (4.0-10.5)
[2019-02-12 05:53] LABS: HEMOGLOBIN 10.8 g/dL (12.0-15.5)
[2019-02-12 06:07] LABS: ANION GAP 9 (5-19); BLOOD UREA NITROGEN 7 mg/dL (7-20); CALCIUM 8.7 mg/dL (8.4-10.2); CARBON DIOXIDE 23 mmol/L (22-30); CHLORIDE 109 mmol/L (98-107); GLUCOSE 82 mg/dL (75-110); POTASSIUM 4.1 mmol/L (3.6-5.0)
[2019-02-12] MEDS: FAMOTIDINE INJ/PF 20 MG/2 ML SDV IV SCH (09:41)
[2019-02-12] MEDS ORDERED: ENOXAPARIN SODIUM INJ 40 MG/0.4 ML DISP.SYRIN SUBCUT SCH (10:00)
--- NOTE | 2019-02-12 14:54 | PDOC DISCHARGE SUMMARY ---
General - Admit/Disc Date/PCP Admission Date/Primary Care Provider: 02/10/19 19:49 HECTOR OVERTON PA-C Discharge Date: 02/12/19 - Discharge Diagnosis Final Diagnosis: acute, nonperforated appendicitis. - Assessment Summary: 18 y/o F seen in the ED for acute appendicitis. She was taken to the OR for laparoscopic appendectomy. Her appendix was not perforated. This was successfully performed, and the pt did well. She was taken to the floor in stable condition. On POD #1 she was ambulating, tolerating a diet, and passing flatus. She was afebrile and her vital signs were stable. She is now considered fit for discharge. - Additional Information Resuscitation Status: Full Code Discharge Diet: As Tolerated Discharge Activity: No Lifting Over 10 Pounds, No Lifting/Push/Pulling Referrals: RALF ROWLEY MD [ACTIVE STAFF] - 02/19/19 8:45 am Home Medications: Clonazepam [Klonopin] 0.5 mg PO Q8HP PRN 02/11/19 Sertraline HCl [Zoloft] 150 mg PO DAILY 02/11/19 Additional Information: D/c home. Diet: as tolerated. Activity: No lifting >10 lbs x 2 weeks. OK to shower tomorrow. No tub baths or swimming pools x 2 weeks. F/u at [facility] in 7-10 days. [place] 10/325 mg PO q6 hours PRN pain. Ibuprofen 800 mg PO TID with meals. History of Present Illiness History of Present Illness: ANNY FRAGA is a 18 year old female Physical Exam Vital Signs: Temp Pulse Resp BP Pulse Ox 97.7 F 69 16 105/64 98 02/11/19 18:10 02/11/19 18:10 02/11/19 18:10 02/11/19 18:10 02/11/19 18:10 Intake & Output 02/11/19 02/12/19 02/13/19 06:59 06:59 06:59 Intake Total 2450 3972 100 Balance 2450 3972 100 Weight 59.3 kg 53.2 kg Results Laboratory Results: WBC 9.3 10^3/uL (4.0-10.5) 02/12/19 04:32 RBC 3.45 10^6/uL (3.72-5.28) L 02/12/19 04:32 Hgb 10.8 g/dL (12.0-15.5) L D 02/12/19 04:32 Hct 31.0 % (36.0-47.0) L 02/12/19 04:32 MCV 90 fl (80-97) 02/12/19 04:32 MCH 31.3 pg (27.0-33.4) 02/12/19 04:32 MCHC 34.8 g/dL (32.0-36.0) 02/12/19 04:32 RDW 12.0 % (11.5-14.0) 02/12/19 04:32 Plt Count 248 10^3/uL (150-450) 02/12/19 04:32 Lymph % (Auto) 28.3 % (13-45) 02/12/19 04:32 [place] % (Auto) 7.5 % (3-13) 02/12/19 04:32 Eos % (Auto) 0.7 % (0-6) 02/12/19 04:32 Baso % (Auto) 0.1 % (0-2) 02/12/19 04:32 Absolute Neuts (auto) 5.9 10^3/uL (1.7-8.2) 02/12/19 04:32 Absolute Lymphs (auto) 2.6 10^3/uL (0.5-4.7) 02/12/19 04:32 Absolute Monos (auto) 0.7 10^3/uL (0.1-1.4) 02/12/19 04:32 Absolute Eos (auto) 0.1 10^3/uL (0.0-0.6) 02/12/19 04:32 Absolute Basos (auto) 0.0 10^3/uL (0.0-0.2) 02/12/19 04:32 Seg Neutrophils % 63.4 % (42-78) 02/12/19 04:32 Sodium 140.6 mmol/L (137-145) 02/12/19 04:32 Potassium 4.1 mmol/L (3.6-5.0) 02/12/19 04:32 Chloride 109 mmol/L (98-107) H 02/12/19 04:32 Carbon Dioxide 23 mmol/L (22-30) 02/12/19 04:32 Anion Gap 9 (5-19) 02/12/19 04:32 BUN 7 mg/dL (7-20) 02/12/19 04:32 Creatinine 0.58 mg/dL (0.52-1.25) 02/12/19 04:32 Est GFR ( Amer) > 60 (>60) 02/12/19 04:32 Est GFR (MDRD) Non-Af > 60 (>60) 02/12/19 04:32 Glucose 82 mg/dL (75-110) 02/12/19 04:32 Calcium 8.7 mg/dL (8.4-10.2) 02/12/19 04:32 Serum HCG, Qual NEGATIVE (NEGATIVE) 02/10/19 16:32 Urine Color YELLOW 02/11/19 20:18 Urine Appearance SLIGHTLY-CLOUDY 02/11/19 20:18 Urine pH 6.0 (5.0-9.0) 02/11/19 20:18 Ur Specific [place] 1.006 02/11/19 20:18 Urine Protein NEGATIVE mg/dL (NEGATIVE) 02/11/19 20:18 Urine Glucose (UA) NEGATIVE mg/dL (NEGATIVE) 02/11/19 20:18 Urine Ketones 20 mg/dL (NEGATIVE) H 02/11/19 20:18 Urine Blood LARGE (NEGATIVE) H 02/11/19 20:18 Urine Nitrite NEGATIVE (NEGATIVE) 02/11/19 20:18 Urine Nitrite (Reflex) NEGATIVE (NEGATIVE) 02/10/19 15:30 Urine Bilirubin NEGATIVE (NEGATIVE) 02/11/19 20:18 Urine Urobilinogen NEGATIVE mg/dL (<2.0) 02/11/19 20:18 Ur Leukocyte Esterase NEGATIVE (NEGATIVE) 02/11/19 20:18 Leukocyte Esterase Rfl NEGATIVE (NEGATIVE) 02/10/19 15:30 Urine WBC (Auto) 3 /HPF 02/11/19 20:18 Urine RBC (Auto) 2 /HPF 02/11/19 20:18 Urine Bacteria (Auto) TRACE /HPF 02/10/19 15:30 Urine WBC (Reflex) 1 /HPF 02/10/19 15:30 Squamous Epi Cells Auto 6 /HPF 02/11/19 20:18 Urine Mucus (Auto) RARE /LPF 02/10/19 15:30 Urine Ascorbic Acid NEGATIVE (NEGATIVE) 02/11/19 20:18 Chlamydia DNA (PCR) NOT DETECTED (NOT DETECT) 02/10/19 16:30 N.gonorrhoeae DNA (PCR) NOT DETECTED (NOT DETECT) 02/10/19 16:30 Impressions: Pelvis Ultrasound 02/10/19 14:33 IMPRESSION: Small amount of fluid around the right ovary. Otherwise normal. Abdomen/Pelvis CT 02/10/19 18:13 IMPRESSION: Findings consistent with acute appendicitis. Moderate amount of free fluid within the cul de sac and posterior to the ovaries ,prominent on the right.
[2019-02-12 15:13] VITALS: BP 113/52
== END 2019-02-12 15:45 | disposition home or self-care (01) ==
LOC: ER 14:18 → INTOOBSV 19:49 → EH 19:49 → 4N 02-11 00:47
PROVIDERS: ATTEND Surgery
PROC: 0DTJ4ZZ Resection of Appendix, Percutaneous Endoscopic Approach (ICD-10-PCS; principal; 2019-02-11 10:30)
DX: K35.30 Acute appendicitis with localized peritonitis, without perforation or gangrene (principal); K66.8 Other specified disorders of peritoneum; F17.200 Nicotine dependence, unspecified, uncomplicated; F32.9 Major depressive disorder, single episode, unspecified; F41.9 Anxiety disorder, unspecified; Z87.42 Personal history of other diseases of the female genital tract
CPT/HCPCS: 99285; 96360; 36415 ×2; 84703; 85025 ×2; 80048 ×2; 81001 ×2; 87491; 87591; 88342 ×2; 88341 ×2; 88304 ×2; 76856; 93976; 74177; 00840; 44970; G0378 ×2; J2250; S0077 ×3; J3490 ×5; J1100; J1885 ×3; J3010; J2765; J2270 ×2; J2710; J1650; J1170; J0330; J2405; J7030 ×2; J2704; S0028 ×2; J0696 ×2; J0131 ×2; 840